=== PATIENT | male | born 1955 | race Caucasian/White ===

== ENCOUNTER 2017-07-17 15:35 | Observation (INO) ==
[2017-07-17] MEDS ORDERED: FUROSEMIDE 40 MG/4 ML VIAL IV STA (17:21)
[2017-07-17 17:34] LABS: Basophils # 0.1 10*3/uL (0.0-0.2); Basophils % 0.6 % (0.0-0.8); Eosinophils # 0.1 10*3/uL (0.0-0.87); Eosinophils % 1.6 % (0.00-10.9); Hematocrit 36.2 VOL% (42.0-52.0); Hemoglobin 13.1 GM/DL (14.0-18.0); Immature Granulocytes % 0.4 %; Immature Granulocytes Absolute 0.03 #; Lymphocytes # 0.6 10*3/uL (1.4-4.0); Lymphocytes % 7.8 % (21.2-54.2); Mean Corpuscular HGB Conc 36.2 GM/DL (32-36); Mean Corpuscular Hemoglobin 40 PG (27-34); Mean Corpuscular Volume 109.4 FL (87-102); Mean Platelet Volume 9.5 FL (9.6-12.0); Monocytes # 0.9 10*3/uL (0.11-0.8); Monocytes % 12.2 % (1.7-12.7); Neutrophils % 77.4 % (38.7-73.9); Platelet Count 134 T/CUMM (130-400); Red Blood Count 3.31 MC/CUMM (3.8-5.5); White Blood Count 7.7 T/CUMM (4-12)
[2017-07-17] MEDS ORDERED: FUROSEMIDE 40 MG/4 ML VIAL ONE (17:44)
[2017-07-17 17:53] LABS: Ammonia 47 UMOL/L (11-32)
[2017-07-17 17:57] LABS: Alanine Aminotransferase 55 U/L (16-61); Albumin 2.8 G/DL (3.4-5.0); Alkaline Phosphatase 156 U/L (45-117); Amylase 50 U/L (25-115); Aspartate Amino Transferase 167 U/L (0-37); Blood Urea Nitrogen 14 MG/DL (7-18); Calcium 8.8 MG/DL (8.5-10.1); Glucose 92 MG/DL (74-106); Osmolality,Calculated 264.5 MOS/KG (273-304); Potassium 4.2 MMOL/L (3.5-5.1); Sodium 132 MMOL/L (136-145); Total Protein 8.7 G/DL (6.4-8.3); Troponin I Only < 0.015 NG/ML (0.00-0.045)
[2017-07-17] MEDS: SPIRONOLACTONE 50 MG TABLET PO SCH (17:59)
[2017-07-17 19:16] LABS: Apearance,Urine CLEAR (Clear); Bilirubin,Urine Negative (Negative); Blood, Urine Small mg/dL (Negative); Glucose,Urine (UA) Negative (Negative); Ketones,Urine Negative (Negative); Mucus,Urine Occasional /LPF (Occasional); Nitrite,Urine Negative (Negative); Protein,Urine Negative; RBC,Urine 1 /HPF (0-4); Urine Color Yellow (Yellow); Urine Specific Gravity 1.009 (1.001-1.035); WBC,Urine 1 /HPF (0-6)
[2017-07-17] MEDS ORDERED: BISACODYL 5 MG TABLET PO PRN (19:36)
[2017-07-17] MEDS ORDERED: ONDANSETRON 4 MG/2 ML VIAL IV PRN (19:36)
[2017-07-17] MEDS ORDERED: ALBUTEROL 2.5 MG/3 ML NEB RESP TX PRN (21:32)
[2017-07-18 05:51] LABS: Basophils # 0.1 10*3/uL (0.0-0.2); Basophils % 1.1 % (0.0-0.8); Eosinophils # 0.3 10*3/uL (0.0-0.87); Eosinophils % 4.9 % (0.00-10.9); Hematocrit 31.8 VOL% (42.0-52.0); Hemoglobin 11.4 GM/DL (14.0-18.0); Immature Granulocytes % 0.5 %; Immature Granulocytes Absolute 0.03 #; Lymphocytes # 0.6 10*3/uL (1.4-4.0); Lymphocytes % 8.6 % (21.2-54.2); Mean Corpuscular HGB Conc 35.8 GM/DL (32-36); Mean Corpuscular Hemoglobin 39 PG (27-34); Mean Corpuscular Volume 109.3 FL (87-102); Mean Platelet Volume 8.8 FL (9.6-12.0); Monocytes # 1.1 10*3/uL (0.11-0.8); Monocytes % 16.9 % (1.7-12.7); Neutrophils # 4.4 10*3/uL (1.4-7.4); Platelet Count 103 T/CUMM (130-400); Red Blood Count 2.91 MC/CUMM (3.8-5.5); Red Cell Distribution Width 14.7 % (9.3-17.3); White Blood Count 6.5 T/CUMM (4-12)
[2017-07-18 05:55] LABS: INR 1.5; PT Patient Result 15.7 SECS
[2017-07-18 06:18] LABS: Albumin 2.4 G/DL (3.4-5.0); Bilirubin,Total 2.4 MG/DL (0.2-1.0); Calcium 8.3 MG/DL (8.5-10.1); Potassium 3.5 MMOL/L (3.5-5.1); Total Protein 7.2 G/DL (6.4-8.3)
[2017-07-18 06:22] LABS: Eosinophils 2 % (0-10); Giant Platelets Few; Hypochromasia 1+; Lymphocytes 12 % (20-55); Ovalocytes Slight; Platelet Estimate Decreased; Segmented Neutrophils 74 % (50-85); Total Cells Counted 100
[2017-07-18 06:25] LABS: Folate 5.7 NG/ML (5.4-24.0); Vitamin B12 1005 PG/ML (211-911)
[2017-07-18 07:07] LABS: Hepatitis A Ab IgM Quant 0.23 Index; Hepatitis A Ab IgM Result Negative (Negative); Hepatitis B Core IgM Result Negative (Negative); Hepatitis B Surface Ag Quant 0.32 Index; Hepatitis B Surface Ag Result Negative (Negative); Hepatitis C Virus Ab Quant > 11.00 Index; Hepatitis C Virus Ab Result Positive (Negative)
[2017-07-18 07:17] LABS: Sedimentation Rate-Westergren 90 MM/HR (0-20)
[2017-07-18 09:20] LABS: Hemoglobin A1 (Alkaline) 97.7 % (96.5-98.5); Hemoglobin A2 (Alkaline) 2.3 % (1.5-3.5)
[2017-07-18] MEDS: tiZANidine 4 MG TABLET PO SCH ×2 (09:26→21:19)
[2017-07-18] MEDS: POLYETHYLENE GLYCOL POWDER 17 GM PACK PO SCH (09:27)
[2017-07-18] MEDS: SPIRONOLACTONE 50 MG TABLET PO SCH (09:27)
[2017-07-18] MEDS ORDERED: SPIRONOLACTONE 25 MG TABLET PO SCH (12:00)
[2017-07-18] MEDS: FUROSEMIDE 40 MG TABLET PO SCH (13:29)
[2017-07-18] MEDS: ASPIRIN EC 81 MG TABLET PO SCH (13:29)
[2017-07-18] MEDS: ADVAIR INH SCH ×2 (13:44→21:17)
[2017-07-19] MEDS ORDERED: ALBUMIN 25% 12.5 GM/50 ML VIAL IV ONE (09:11)
[2017-07-19] MEDS ORDERED: ALBUMIN 25% 25 GM in PREMIX 1 EACH IV ONE (09:16)
[2017-07-19] MEDS: POLYETHYLENE GLYCOL POWDER 17 GM PACK PO SCH (10:51)
[2017-07-19] MEDS: tiZANidine 4 MG TABLET PO SCH ×3 (10:51→20:54)
[2017-07-19] MEDS: SPIRONOLACTONE 50 MG TABLET PO SCH (10:51)
[2017-07-19] MEDS: ADVAIR INH SCH ×2 (10:52→20:55)
[2017-07-19] MEDS: ASPIRIN EC 81 MG TABLET PO SCH (11:00)
[2017-07-19] MEDS: FUROSEMIDE 40 MG TABLET PO SCH (11:00)
[2017-07-19] MEDS: PROPRANOLOL 20 MG TABLET PO SCH ×2 (12:10→20:54)
[2017-07-19] MEDS: APIXABAN 5 MG TABLET PO SCH (20:54)
[2017-07-20] MEDS: SPIRONOLACTONE 50 MG TABLET PO SCH (09:28)
[2017-07-20] MEDS: APIXABAN 5 MG TABLET PO SCH (09:28)
[2017-07-20] MEDS: POLYETHYLENE GLYCOL POWDER 17 GM PACK PO SCH (09:30)
[2017-07-20] MEDS: PROPRANOLOL 20 MG TABLET PO SCH (09:37)
[2017-07-20] MEDS: tiZANidine 4 MG TABLET PO SCH (09:38)
[2017-07-20] MEDS: ADVAIR INH SCH (09:39)
[2017-07-20] MEDS: FUROSEMIDE 40 MG TABLET PO SCH (12:52)
[2017-07-20] MEDS: ASPIRIN EC 81 MG TABLET PO SCH (12:52)
[2017-07-20 13:30] VITALS: BP 112/61
== END 2017-07-20 16:30 | disposition home health service (06) ==
LOC: N.EDINP 15:35 → N.ED 15:35 → N.EDINP 20:50 → N.4E 21:12
PROVIDERS: ADMIT Internal Medicine; ATTEND Internal Medicine